=== PATIENT | female | born 1955 | race Caucasian/White ===

== ENCOUNTER → 2018-10-26 | Outpatient (CLI) | payer BC ==
[~2018-10-26] MED LIST: Synthroid112 MCG PO
[2018-10-28 14:08] LABS: HPV 16 Negative (Negative); HPV 18 Negative (Negative); HPV OTHER HR TYPES Negative (Negative)
== END | disposition home or self-care (01) ==
LOC: LAB 15:22 → LAB SHORT 15:22
PROVIDERS: Obstetrics & Gynecology
DX: Z01.419 Encounter for gynecological examination (general) (routine) without abnormal findings (principal)
CPT/HCPCS: 87624; G0123

== ENCOUNTER 2021-06-18 07:30 | Day surgery (SDC) | payer BC ==
[~2021-06-18] VITALS: Ht 160 cm; Wt 85.3 kg
[~2021-06-18 07:30] MED LIST changes: +MULTIPLE VITAM1 EACH PO; +VITAMIN D325 MC3 PO
== END 2021-06-18 09:46 | disposition home or self-care (01) ==
LOC: ORSCSDS 07:30
PROVIDERS: Surgery
PROC: 0DJD8ZZ Inspection of Lower Intestinal Tract, Via Natural or Artificial Opening Endoscopic (ICD-10-PCS; principal; 2021-06-18 08:45)
DX: Z12.11 Encounter for screening for malignant neoplasm of colon (principal); Z86.010 Personal history of colon polyps; E03.9 Hypothyroidism, unspecified; Z79.899 Other long term (current) drug therapy
CPT/HCPCS: J2704